=== PATIENT | male | born 1950 | race Caucasian/White ===

== ENCOUNTER 2016-08-19 21:22 | Emergency (ER) | payer OTHER ==
[~2016-08-19] VITALS: Ht 172.7 cm; Wt 66.0 kg
[2016-08-19 21:25] VITALS: BP 175/75; PULSE 62; RESP 16; TEMP 98.2; O2SAT 96
[2016-08-19 23:43] VITALS: RESP 18
[2016-08-19] MEDS ORDERED: VANCOMYCIN INJ 1,000 MG in SODIUM CHLOR 0.9% 250 ML INJ 250 ML IV ONE (23:45)
[2016-08-19] MEDS ORDERED: SODIUM CHLOR 0.9% 1000 ML INJ 1,000 ML IV ONE (23:45)
[2016-08-19] MEDS ORDERED: TETANUS/DIPHTHERIA TOXOID ADULT 0.5 ML VIAL IM ONE (23:45)
[2016-08-19 23:59] LABS: BLOOD, URINE NEG (NEG); GLUCOSE,URINE NEG (NEG); KETONE, URINE TRACE mg/dL (NEG); MUCUS URINE FEW /lpf (OCC); NITRITE,URINE NEG (NEG); PH, URINE 6.5 (5.0-8.5); SQUAMOUS EPITHELIAL CELL URINE <1 /hpf (0-5); URINE COLOR LIGHT-YELLOW (YELLW/STRAW)
[2016-08-20] LABS: AUTOMATED NEUTROPHIL # 13.8 TH/MM3 (1.8-7.7); BASOPHIL # 0.1 TH/MM3 (0-0.2); BASOPHIL % 0.4 % (0.0-2.0); EOSINOPHIL # 0.4 TH/MM3 (0-0.4); EOSINOPHIL % 2.4 % (0.0-4.0); HEMATOCRIT 36.9 % (39.0-51.0); HEMO FLAGS DIFF FINAL; LYMPH % 10.3 % (9.0-44.0); LYMPHOCYTE # 1.8 TH/MM3 (1.0-4.8); MEAN CELL VOLUME 92.1 FL (80.0-100.0); MEAN CORPUSCULAR HEMOGLOBIN 31.5 PG (27.0-34.0); MEAN CORPUSCULAR HGB CONC 34.2 % (32.0-36.0); MONO % 6.8 % (0.0-8.0); NEUT % 80.1 % (16.0-70.0); PLATELET COUNT 324 TH/MM3 (150-450); RED BLOOD COUNT 4.01 MIL/MM3 (4.50-5.90); RED CELL DISTRIBUTION WIDTH 12.8 % (11.6-17.2); WHITE BLOOD COUNT 17.2 TH/MM3 (4.0-11.0)
[2016-08-20 00:07] LABS: COMMENT (UR) CATH-CULT NOT IND; CULTURE IF INDICATED CATH CULTURE NOT IND
[2016-08-20 00:09] LABS: APTT (PATIENT) 29.4 SEC (24.3-30.1); INTERNATIONAL NORMALIZED RATIO 0.9 RATIO; PROTHROMBIN TIME - PATIENT 10.3 SEC (9.8-11.6)
[2016-08-20 00:28] LABS: ANION GAP 8 MEQ/L (5-15); AST (GOT) 12 U/L (15-37); BICARBONATE 28.3 MEQ/L (21.0-32.0); BLOOD UREA NITROGEN 10 MG/DL (7-18); CHLORIDE 102 MEQ/L (98-107); GLOMERULAR FILTRATION RATE 96 ML/MIN (>89); POTASSIUM 3.8 MEQ/L (3.5-5.1); SODIUM (NA) 138 MEQ/L (136-145)
[2016-08-20 00:32] LABS: ALKALINE PHOSPHATASE 92 U/L (45-117); ALT (GPT) 13 U/L (12-78); TOTAL BILIRUBIN ADULT 0.5 MG/DL (0.2-1.0)
--- NOTE | 2016-08-20 00:42 | PD ---
HPI Chief Complaint: General Weakness Time Seen by Provider: 23:28 Travel History International Travel<30 days: No Contact w/Intl Traveler<30days: No Traveled to known affect area: No History of Present Illness HPI Patient is a 66-year-old male who presents to emergency room with his for evaluation of generalized weakness and hallucinations. Patient reports that a week and a half ago, he was working on his house and was bitten by a bug on his right buttocks. Patient reports that he has been keeping the area clean but noticed that he has had increased induration to his right buttocks increase swelling to the area. Patient reports that his right buttocks became increasingly painful, reports that he felt the area and noticed that it was hard but there were areas of drainage. Reports that he went to the urgent care today and was started on Bactrim for his infection. Patient reports that he took his first dose of Bactrim today. Patient's reports that tonight, he began to have hallucinations and overall weakness. Patient unsure if symptoms are secondary to infection versus antibiotics. Patient with no fevers or chills at this time. Patient's tetanus is not up-to-date. PFSH Past Medical History Medical History: Denies Significant Hx Tetanus Vaccination: Unknown Influenza Vaccination: No Past Surgical History Surgical History: No Previous Surgery Social History Alcohol Use: No Tobacco Use: No Substance Use: No Allergies-Medications (Allergen,Severity, Reaction): Coded Allergies: No Known Allergies (Unverified , 08/19/16) Reported Meds & Prescriptions Reported Meds & Active Scripts Active Ibuprofen 600 Mg Tab 600 Mg PO Q6H PRN Keflex (Cephalexin) 500 Mg Cap 500 Mg PO Q6H 10 Days Percocet (Oxycodone-Acetaminophen) 5-325 mg Tab 1 Tab PO Q4H PRN Bactrim DS (Sulfamethoxazole-Trimethoprim) 800-160 Mg Tab 2 Tab PO BID 10 Days Review of Systems ROS Limitations: Altered Mental Status General / Constitutional: No: Fever Eyes: No: Visual changes HENT: No: Headaches Cardiovascular: No: Chest Pain or Discomfort Respiratory: No: Shortness of Breath Gastrointestinal: No: Abdominal Pain Genitourinary: No: Dysuria Musculoskeletal: No: Pain Skin: Positive Rash, Positive Other (cellulitis) Neurologic: No: Weakness Psychiatric: No: Depression Endocrine: No: Polydipsia Hematologic/Lymphatic: No: Easy Bruising Physical Exam Narrative GENERAL: moderate distress SKIN: Warm and dry. HEAD: Atraumatic. Normocephalic. EYES: Pupils equal and round. No scleral icterus. No injection or drainage. ENT: No nasal bleeding or discharge. Mucous membranes pink and moist. NECK: Trachea midline. No JVD. CARDIOVASCULAR: Regular rate and rhythm. No murmur appreciated. RESPIRATORY: No accessory muscle use. Clear to auscultation. Breath sounds equal bilaterally. GASTROINTESTINAL: Abdomen soft, non-tender, nondistended. Patient with 8cm x 8 cm abscess with cellulitis to right gluteus, pt with central area of discharge and induration MUSCULOSKELETAL: No obvious deformities. No clubbing. No cyanosis. No edema. NEUROLOGICAL: Awake and alert. No obvious cranial nerve deficits. Motor grossly within normal limits. Normal speech. PSYCHIATRIC: Appropriate mood and affect; insight and judgment normal. Data Data Last Documented VS Vital Signs Date Time Temp Pulse Resp B/P Pulse Ox O2 Delivery O2 Flow Rate FiO2 08/19/16 23:43 18 08/19/16 22:24 Room Air 08/19/16 21:25 98.2 62 175/75 96 Orders Complete Blood Count With Diff (08/19/16 23:33) Comprehensive Metabolic Panel (08/19/16 23:33) Prothrombin Time / Inr (Pt) (08/19/16 23:33) Act Partial Throm Time (Ptt) (08/19/16 23:33) Lactic Acid Sepsis Protocol (08/19/16 23:33) Urinalysis - C+S If Indicated (08/19/16 23:33) Blood Culture (08/19/16 23:33) Ecg Monitoring (08/19/16 23:33) Iv Access Insert/Monitor (08/19/16 23:33) Oximetry (08/19/16 23:33) Tetanus/Diphtheria Tox Adult (Tetanus/Di (08/19/16 23:45) Vancomycin Inj (Vancomycin Inj) (08/19/16 23:45) Sodium Chlor 0.9% 1000 Ml Inj (Ns 1000 M (08/19/16 23:45) Labs Laboratory Tests Test 08/19/16 23:45 White Blood Count 17.2 TH/MM3 Red Blood Count 4.01 MIL/MM3 Hemoglobin 12.6 GM/DL Hematocrit 36.9 % Mean Corpuscular Volume 92.1 FL Mean Corpuscular Hemoglobin 31.5 PG Mean Corpuscular Hemoglobin 34.2 % Concent Red Cell Distribution Width 12.8 % Platelet Count 324 TH/MM3 Mean Platelet Volume 8.7 FL Neutrophils (%) (Auto) 80.1 % Lymphocytes (%) (Auto) 10.3 % Monocytes (%) (Auto) 6.8 % Eosinophils (%) (Auto) 2.4 % Basophils (%) (Auto) 0.4 % Neutrophils # (Auto) 13.8 TH/MM3 Lymphocytes # (Auto) 1.8 TH/MM3 Monocytes # (Auto) 1.2 TH/MM3 Eosinophils # (Auto) 0.4 TH/MM3 Basophils # (Auto) 0.1 TH/MM3 CBC Comment DIFF FINAL Differential Comment Prothrombin Time 10.3 SEC Prothromb Time International 0.9 RATIO Ratio Activated Partial 29.4 SEC Thromboplast Time Urine Color LIGHT-YELLOW Urine Turbidity CLEAR Urine pH 6.5 Urine Specific [place] 1.008 Urine Protein NEG mg/dL Urine Glucose (UA) NEG mg/dL Urine Ketones TRACE mg/dL Urine Occult Blood NEG Urine Nitrite NEG Urine Bilirubin NEG Urine Urobilinogen LESS THAN 2.0 MG/DL Urine Leukocyte Esterase NEG Urine RBC 1 /hpf Urine WBC 1 /hpf Urine Squamous Epithelial <1 /hpf Cells Urine Mucus FEW /lpf Microscopic Urinalysis Comment CATH-CULT NOT IND Sodium Level 138 MEQ/L Potassium Level 3.8 MEQ/L Chloride Level 102 MEQ/L Carbon Dioxide Level 28.3 MEQ/L Anion Gap 8 MEQ/L Blood Urea Nitrogen 10 MG/DL Creatinine 0.80 MG/DL Estimat Glomerular Filtration 96 ML/MIN Rate Random Glucose 98 MG/DL Lactic Acid Level 0.7 mmol/L Calcium Level 8.8 MG/DL Total Bilirubin 0.5 MG/DL Aspartate Amino Transf 12 U/L (AST/SGOT) Alanine Aminotransferase 13 U/L (ALT/SGPT) Alkaline Phosphatase 92 U/L Total Protein 7.2 GM/DL Albumin 3.6 GM/DL MDM Medical Decision Making Medical Screen Exam Complete: Yes Emergency Medical Condition: Yes Interpretation(s) Vital Signs Date Time Temp Pulse Resp B/P Pulse Ox O2 Delivery O2 Flow Rate FiO2 08/19/16 23:43 18 08/19/16 22:24 Room Air 08/19/16 21:25 98.2 62 16 175/75 96 Room Air Laboratory Tests Test 08/19/16 23:45 White Blood Count 17.2 TH/MM3 (4.0-11.0) Red Blood Count 4.01 MIL/MM3 (4.50-5.90) Hemoglobin 12.6 GM/DL (13.0-17.0) Hematocrit 36.9 % (39.0-51.0) Mean Corpuscular Volume 92.1 FL (80.0-100.0) Mean Corpuscular Hemoglobin 31.5 PG (27.0-34.0) Mean Corpuscular Hemoglobin 34.2 % Concent (32.0-36.0) Red Cell Distribution Width 12.8 % (11.6-17.2) Platelet Count 324 TH/MM3 (150-450) Mean Platelet Volume 8.7 FL (7.0-11.0) Neutrophils (%) (Auto) 80.1 % (16.0-70.0) Lymphocytes (%) (Auto) 10.3 % (9.0-44.0) Monocytes (%) (Auto) 6.8 % (0.0-8.0) Eosinophils (%) (Auto) 2.4 % (0.0-4.0) Basophils (%) (Auto) 0.4 % (0.0-2.0) Neutrophils # (Auto) 13.8 TH/MM3 (1.8-7.7) Lymphocytes # (Auto) 1.8 TH/MM3 (1.0-4.8) Monocytes # (Auto) 1.2 TH/MM3 (0-0.9) Eosinophils # (Auto) 0.4 TH/MM3 (0-0.4) Basophils # (Auto) 0.1 TH/MM3 (0-0.2) CBC Comment DIFF FINAL Differential Comment Prothrombin Time 10.3 SEC (9.8-11.6) Prothromb Time International 0.9 RATIO Ratio Activated Partial 29.4 SEC Thromboplast Time (24.3-30.1) Urine Color LIGHT-YELLOW (YELLW/STRAW) Urine Turbidity CLEAR (CLEAR) Urine pH 6.5 (5.0-8.5) Urine Specific [place] 1.008 (1.002-1.035) Urine Protein NEG mg/dL (NEG-TRACE) Urine Glucose (UA) NEG mg/dL (NEG) Urine Ketones TRACE mg/dL (NEG) Urine Occult Blood NEG (NEG) Urine Nitrite NEG (NEG) Urine Bilirubin NEG (NEG) Urine Urobilinogen LESS THAN 2.0 MG/DL (LESS THAN 2.0) Urine Leukocyte Esterase NEG (NEG) Urine RBC 1 /hpf (0-3) Urine WBC 1 /hpf (0-5) Urine Squamous Epithelial <1 /hpf (0-5) Cells Urine Mucus FEW /lpf (OCC) Microscopic Urinalysis Comment CATH-CULT NOT IND Sodium Level 138 MEQ/L (136-145) Potassium Level 3.8 MEQ/L (3.5-5.1) Chloride Level 102 MEQ/L (98-107) Carbon Dioxide Level 28.3 MEQ/L (21.0-32.0) Anion Gap 8 MEQ/L (5-15) Blood Urea Nitrogen 10 MG/DL (7-18) Creatinine 0.80 MG/DL (0.60-1.30) Estimat Glomerular Filtration 96 ML/MIN (>89) Rate Random Glucose 98 MG/DL (74-106) Lactic Acid Level 0.7 mmol/L (0.4-2.0) Calcium Level 8.8 MG/DL (8.5-10.1) Aspartate Amino Transf 12 U/L (15-37) (AST/SGOT) Albumin 3.6 GM/DL (3.4-5.0) Differential Diagnosis Sepsis, abscess with cellulitis, acute delirium Narrative Course Patient is a 66-year-old male who presents to emergency room with complaints of generalized weakness with abscess and cellulitis to right buttocks. Reports that he has noticed this infection for the past week and a half and reports that he has noticed increased signs of infection to his right buttock. Patient reports that he went to an urgent care center today and was told that he had an abscess with underlying cellulitis. Patient currently on Bactrim. Vital signs stable Patient alert and oriented x 3. Patient with no signs of delirium at this time. Does have abscess with underlying cellulitis to his right sided buttocks. There is no areas of fluctuance. Patient was given a dose of vancomycin while in the emergency room. Patient has been pancultured. Tetanus has been updated. Labs and studies ordered. CBC Wbc 17.2 Hemoglobin 12.6 Hematocrit 36.9 Platelets 324 BMP Sodium 138 Chloride 102 Potassium 3.8 Bicarbonate 28.3 Lactic acid 0.7 Blood cultures pending. Patient nontoxic on evaluation. Discussed with patient and his signs and symptoms of when to return to the emergency room. Understands importance of reevaluation by physician in 48 hours. Understands that if he develops fevers or chills or streaking to area of cellulitis and abscess, he must return to the emergency room immediately. I did offer patient admission to the hospital for symptoms, patient deferred admission at this time and would like to try outpatient treatment first. Patient's will monitor abscess with cellulitis closely and understands signs and symptoms of when to have him return to the emergency room. Diagnosis Primary Impression: Abscess Additional Impression: Cellulitis Qualified Code: L03.317 - Cellulitis of buttock Patient Instructions: General Instructions, Narcotic given in the ED Additional Instructions: Please return to the emergency room if symptoms progress or worsen Please follow-up with your primary care doctor as soon as possible Please follow-up with all cultures from today If symptoms worsen or progress or if you develop fevers or chills, please return to the emergency room immediately Med/Other Pt SpecificInfo: Prescription(s) given Scripts Ibuprofen 600 Mg [id number] Mg PO Q6H PRN (Pain/Inflammation) #40 TAB Ref 0 Prov:Kathryn Louis DO 08/20/16 Cephalexin (Keflex)500 Mg [id number] Mg PO Q6H 10 Days Ref 0 Prov:Kathryn Louis DO 08/20/16 Oxycodone-Acetaminophen (Percocet)5-325 mg Tab1 Tab PO Q4H PRN (PAIN) #20 TAB Ref 0 Prov:Kathryn Louis DO 08/20/16 Sulfamethoxazole-Trimethoprim (Bactrim DS)800-160 Mg Tab2 Tab PO BID 10 Days Ref 0 Prov:Kathryn Louis DO 08/20/16 Disposition: 01 DISCHARGE HOME Condition: Fair Kathryn Louis DO Aug 20, 2016 00:42
[2016-08-20] MEDS ORDERED: CEPH-460 PO (01:26)
[2016-08-20] MEDS ORDERED: IBUP-232 PO (01:26)
[2016-08-20] MEDS ORDERED: PERC5TAB12 PO (01:26)
[2016-08-20] MEDS ORDERED: BACT800T5 PO (01:26)
[2016-08-20 01:30] VITALS: BP 162/76; PULSE 68; RESP 16; O2SAT 98
== END 2016-08-20 01:48 | disposition home or self-care (01) ==
LOC: NEPA 21:22
DX: L02.31 Cutaneous abscess of buttock (principal); R53.1 Weakness; Z23 Encounter for immunization
CPT/HCPCS: 80053; 81001; 83605; 85025; 85610; 85730; 87040; 90471; 90714; 96365; 99284; J3370; J7030; J7050